=== PATIENT | male | born 1980 | race American Indian/Alaskan Native ===

== ENCOUNTER 2018-11-09 03:59 | Emergency (ER) | payer MEDICAID, OTHER ==
--- NOTE | 2018-11-09 04:23 | EDM.PDOC ---
ED HPI GENERAL MEDICAL PROBLEM - General Chief Complaint: Lower Extremity Injury/Pain Stated Complaint: LEFT BROKEN LEG Time Seen by Provider: 11/09/18 04:00 Source of Information: Reports: Patient History Limitations: Reports: No Limitations - History of Present Illness INITIAL COMMENTS - FREE TEXT/NARRATIVE: 38-year-old male was walking up stairs when he slipped and turned his left ankle. He is unable to bear weight, has significant swelling and pain. No other injury. Onset: Sudden Duration: Hour(s): (An hour ago) Location: Reports: Lower Extremity, Left Associated Symptoms: Reports: No Other Symptoms ankle Pain Score (Numeric/FACES): 10 - Related Data Allergies Allergy/AdvReac Type Severity Reaction Status Date / Time amoxicillin Allergy Rash Verified 11/09/18 04:05 Penicillins Allergy Rash Verified 11/09/18 04:05 Home Meds: Home Meds Gabapentin [Neurontin] 100 mg PO TID 11/09/18 [History] Venlafaxine HCl [Venlafaxine ER] 75 mg PO DAILY 11/09/18 [History] buPROPion [buPROPion XL] 150 mg PO DAILY 11/09/18 [History] Past Medical History Psychiatric History: Reports: ADHD, Anxiety, Depression, PTSD Social & Family History - Tobacco Use Smoking Status *Q: Current Every Day Smoker Years of Tobacco use: 12 Packs/Tins Daily: 0.5 - Recreational Drug Use Recreational Drug Use: No Review of Systems - Review of Systems Review Of Systems: See Below Constitutional: Denies: Fever Respiratory: Denies: Shortness of Breath Cardiovascular: Denies: Chest Pain GI/Abdominal: Denies: Abdominal Pain, Nausea, Vomiting Skin: Reports: Other (A small abrasion over the medial malleolus) ED EXAM, GENERAL - Physical Exam Exam: See Below Exam Limited By: No Limitations General Appearance: Alert, Mild Distress (Fairly uncomfortable) Head: Atraumatic Respiratory/Chest: No Respiratory Distress Cardiovascular: Regular Rate, Rhythm Extremities: Other (Remainder of exam is limited to the lower extremities. He has marked tenderness and swelling around the left ankle, and a small abrasion over the medial malleolus.) Course - Vital Signs Last Recorded V/S: Last Vital Signs Temp 98.7 F 11/09/18 04:01 Pulse 77 11/09/18 04:01 Resp 16 11/09/18 04:01 BP 171/87 H 11/09/18 04:01 Pulse Ox 99 11/09/18 04:01 - Orders/Labs/Meds Orders: Active Orders 24 hr Category Date Time Status DME for Discharge [COMM] Stat Oth 11/09/18 04:54 Ordered - Re-Assessments/Exams Free Text/Narrative Re-Assessment/Exam: 11/09/18 04:23 Left ankle x-ray was obtained. 11/09/18 04:55 X-ray confirms a comminuted spiral distal fibular fracture. Discussed this with orthopedics, the patient was put in a posterior splint, provided crutches, and will return tomorrow for surgical repair. He was given 12 hydrocodone for extra pain control. He states elevate the foot as much as possible and he will be called with the surgical time later today. He should not eat or drink anything after 1 AM tonight. Departure - Departure Time of Disposition: 05:01 Disposition: Home, Self-Care 01 Condition: Fair Clinical Impression: Fracture of fibula - Discharge Information Instructions: Fibular Ankle Fracture Treated With or Without Immobilization, Adult Referrals: PCP,None [Primary Care Provider] - Forms: ED Department Discharge Care Plan Goals: Keep splint on, use crutches and elevate leg as much as possible. You will be contacted for surgical time tomorrow morning. Do not eat or drink anything after 1 AM tonight unless you're surgery is later in the day they will inform you when to stop eating or drinking. Ibuprofen or naproxen will help the pain, add stronger pain medication if needed. - My Orders Last 24 Hours: My Active Orders 11/09/18 04:54 DME for Discharge [COMM] Stat - Assessment/Plan Last 24 Hours: My Active Orders 11/09/18 04:54 DME for Discharge [COMM] Stat
--- NOTE | 2018-11-09 04:45 | CRLCR ---
INDICATION: Ankle injury from fall TECHNIQUE: Ankle radiograph 3 views left COMPARISON: None FINDINGS: Bone: There is a comminuted segmental fracture of the distal fibula and lateral malleolus present. Cortical irregularity along the posterior distal tibia is present, suspicious for nondisplaced posterior tibial malleolar fracture. Joint: The ankle mortise joint and the visualized hindfoot joints are unremarkable in appearance. No significant ankle effusion is seen. Soft tissue: Mild lateral soft tissue swelling is noted. No radiopaque foreign bodies are seen. IMPRESSIONS: 1. There is a comminuted segmental fracture of the distal fibula and lateral malleolus present. 2. Cortical irregularity along the posterior distal tibia is present, suspicious for nondisplaced posterior tibial malleolar fracture. Dictated by Yariel Jerry MD @ 11/09/2018 4:42:59 AM Dictated by: Yariel Jerry MD @ 11/09/2018 04:43:04 (Electronically Signed)
== END 2018-11-09 05:14 | disposition home or self-care (01) ==
LOC: JP.ED 03:59
DX: S82.832A Other fracture of upper and lower end of left fibula, initial encounter for closed fracture (principal); F17.210 Nicotine dependence, cigarettes, uncomplicated; Z88.0 Allergy status to penicillin; Z88.8 Allergy status to other drugs, medicaments and biological substances; Z79.899 Other long term (current) drug therapy; W10.9XXA Fall (on) (from) unspecified stairs and steps, initial encounter
CPT/HCPCS: 29515; 73610-LT; 99284; 99284-25

== ENCOUNTER 2018-11-10 08:35 | Day surgery (SDC) | payer MEDICAID ==
[~2018-11-10 08:35] MED LIST: Bupivacaine 0.5% 30 ML SDV ONE
[2018-11-10] MEDS ORDERED: Rocuronium 50 MG/5 ML Vial ONE (09:20)
[2018-11-10] MEDS ORDERED: Ondansetron 4 MG/2 ML SDV ONE (09:20)
[2018-11-10] MEDS ORDERED: Dexamethasone 4 MG/ML SDV ONE (09:20)
[2018-11-10] MEDS ORDERED: Neostigmine Methylsulfate 1 MG/ML 5 ML Syringe ONE (09:20)
[2018-11-10] MEDS ORDERED: fentaNYL 250 MCG/5 ML SDV ONE (09:20)
[2018-11-10] MEDS ORDERED: Propofol 200 MG/20 ML SDV ONE (09:20)
[2018-11-10] MEDS ORDERED: Glycopyrrolate 0.2 MG/ML 5 ML MDV ONE (09:20)
[2018-11-10] MEDS ORDERED: Midazolam 1 MG/ML 2 ML SDV ONE (09:20)
[2018-11-10] MEDS ORDERED: Succinylcholine 200 MG/10 ML MDV ONE (09:20)
[2018-11-10] MEDS ORDERED: Sodium Chloride 0.9% 1,000 ML IV SCH (09:30)
[2018-11-10] MEDS ORDERED: Clindamycin Phosphate 900 MG in Sodium Chloride 0.9% 100 ML IV ONE (09:45)
[2018-11-10] MEDS ORDERED: Lactated Ringers 1,000 ML ONE (10:19)
[2018-11-10] MEDS ORDERED: Morphine 2 MG/ML Syringe IVPUSH ONE (11:20)
[2018-11-10] MEDS ORDERED: Acetaminophen/HYDROcodone 325-5 MG Tab PO PRN (11:56)
--- NOTE | 2018-11-10 17:03 | PCM.OPNOTE ---
- General Post-Op/Procedure Note Date of Surgery/Procedure: 11/10/18 Operative Procedure(s): Open Reduction and Internal Fixaton left ankle Findings: Comminuted left fibula fracture, moderately displaced Pre Op Diagnosis: Comminuted left fiblua fracture Post-Op Diagnosis: Same Anesthesia Technique: General ET Tube Secondary Surgeon: David WELCH in mLs: 25 Condition: Stable Free Text/Narrative:: Intake & Output 11/10/18 11/10/18 11/10/18 06:59 14:59 22:59 Intake Total 250 Balance 250 Indications: 38 year ol male fell and twisted his ankle resulting in a comminuted fracture of the left fibula that is moderately displaced. Presents for ORIF. Risks, benefits and potrential complications were discussed. Procedure: After adequate general anesthesia is obtained the patient was placed in a supine position with a bump under the left hip. A tourniquet was placed about the upper leg.The left leg is then prepped and draped in a sterile fash It is exsanguinated and the tourniquet is inflated to 300 mg of mercury pressure.A longitudinal incision is made over the distal fibula and carried down through the subcutaneous tissues.Dissection is carried down directly onto the lateral shaft of the fibula. A comminuted fracture is identified with a oblique fracture of the distal fibula at the malleolus and another oblique fracture several centimeters proximally in the distal one third of the shaft.Edges of the fracture were cleared of soft tisuue. Fracture edges are irrigated and bone-holding forceps were then used to reduce both fractures. A contoured fibular plate was selected long enough to span both fractures. This is placed over the lateral aspect of the fibula and secured with locking screws distally. Two 3.5 mm screws were then placed into the intercalary segment and 3 3.5 mm screws are placed into the proximal shaft. Excellent purchase was obtained with 3.5 mm screws. Final reduction and fixation was evaluated using fluoroscopy.Syndesmosis was also stressed under fluoroscopic imaging and no evidence of widening was noted. The wound was irrigated and closed in layers with 0 Vicryl in the fascial layer , 2-0 Vicryl and 3-0 Monocryl in a running subcuticular.Steri-Strips were applied. The incision was then infiltrated wit 0.5% Marcaine. A sterile dressing was then placed and wrapped with sterile soft roll. A well padded AO plaster splint was then applied with the foot in neutral position. Patient tolerated the procedure well and there were no complications and he was taken from the operating room is a stable condition.
== END 2018-11-10 13:15 | disposition home or self-care (01) ==
LOC: JP.SDS 08:35
PROVIDERS: ATTEND Specialist
DX: S82.452A Displaced comminuted fracture of shaft of left fibula, initial encounter for closed fracture (principal); F41.9 Anxiety disorder, unspecified; F32.9 Major depressive disorder, single episode, unspecified; F43.10 Post-traumatic stress disorder, unspecified; F90.9 Attention-deficit hyperactivity disorder, unspecified type; F17.200 Nicotine dependence, unspecified, uncomplicated; Z79.899 Other long term (current) drug therapy; Z88.1 Allergy status to other antibiotic agents; Z88.0 Allergy status to penicillin; W10.9XXA Fall (on) (from) unspecified stairs and steps, initial encounter; X50.1XXA Overexertion from prolonged static or awkward postures, initial encounter
CPT/HCPCS: 27784; A9270; C1713; J0330; J1100; J2250; J2270; J2405; J2704; J3010; J3490; J7030; J7120; J2710

== ENCOUNTER 2022-05-12 18:30 | Emergency (ER) | payer MEDICAID ==
[2022-05-12] MEDS ORDERED: Lactated Ringers 1,000 ML IV ONE (19:33)
[2022-05-12] MEDS ORDERED: Sodium Chloride 0.9% 10 ML Syringe FLUSH PRN (19:34)
[2022-05-12 20:02] LABS: ESTIMATED GFR 97 mL/min (>60)
== END 2022-05-12 22:08 | disposition home or self-care (01) ==
LOC: JP.ED 18:30
DX: R53.1 Weakness (principal); R53.83 Other fatigue; R11.2 Nausea with vomiting, unspecified; F17.210 Nicotine dependence, cigarettes, uncomplicated; Z88.0 Allergy status to penicillin; Z79.899 Other long term (current) drug therapy; Z20.822 Contact with and (suspected) exposure to COVID-19
CPT/HCPCS: 36415; 70450; 80053; 83690; 85025; 87635; 96360; 99285; J3490; J7120; U0002

== ENCOUNTER 2022-08-16 17:25 | Emergency (ER) | payer MEDICAID ==
[2022-08-17] MEDS ORDERED: Gabapentin 100 MG Cap PO SCH (06:00)
[2022-08-17] MEDS ORDERED: PROCHLORPERAZINE 5 MG PO SCH (06:00)
[2022-08-17] MEDS: Gabapentin 400 MG Cap PO SCH ×4 (07:23→21:37)
[2022-08-17] MEDS: Morphine 10 MG/0.5 ML Oral Syringe BUCCAL SCH ×5 (07:24→21:41)
[2022-08-17] MEDS: Prochlorperazine 10 MG Tab PO SCH ×3 (07:24→21:39)
[2022-08-17] MEDS ORDERED: Morphine 10 MG/0.5 ML Oral Syringe BUCCAL PRN (08:15)
[2022-08-17] MEDS ORDERED: Pantoprazole 40 MG Delayed-Release Granules 1 Packet PO SCH (09:00)
[2022-08-17] MEDS ORDERED: LEVETIRACETAM 750 MG PO SCH (09:00)
[2022-08-17] MEDS: Pantoprazole 40 MG Tab.CR PO SCH ×2 (09:04→15:52)
[2022-08-17] MEDS: Metoprolol Tartrate 25 MG Tab PO SCH ×2 (09:04→21:33)
[2022-08-17] MEDS: levETIRAcetam 250 MG Tab PO SCH ×2 (09:04→21:39)
[2022-08-17] MEDS: Dexamethasone 2 MG Tab PO SCH ×3 (09:05→21:32)
[2022-08-17] MEDS: Venlafaxine 75 MG Cap.ER PO SCH (09:05)
[2022-08-17] MEDS ORDERED: Gabapentin 400 MG Cap PO SCH ×2 (10:00)
[2022-08-17] MEDS: traZODone 50 MG Tab PO SCH (21:36)
[2022-08-17] MEDS: OLANZapine 5 MG Tab PO SCH (21:38)
[2022-08-18] MEDS: LORazepam 0.5 MG Tab PO PRN ×3 (05:11→23:34)
[2022-08-18] MEDS: Morphine 10 MG/0.5 ML Oral Syringe BUCCAL SCH ×4 (06:49→23:34)
[2022-08-18] MEDS: Gabapentin 400 MG Cap PO SCH ×4 (06:52→23:21)
[2022-08-18] MEDS: Prochlorperazine 10 MG Tab PO SCH ×3 (06:52→23:42)
[2022-08-18] MEDS: Pantoprazole 40 MG Tab.CR PO SCH ×2 (06:52→17:54)
[2022-08-18] MEDS: levETIRAcetam 250 MG Tab PO SCH ×3 (09:30→23:17)
[2022-08-18] MEDS: Dexamethasone 2 MG Tab PO SCH ×3 (11:41→23:20)
[2022-08-18] MEDS: Metoprolol Tartrate 25 MG Tab PO SCH ×2 (11:42→23:18)
[2022-08-18] MEDS: Venlafaxine 75 MG Cap.ER PO SCH (11:42)
[2022-08-18] MEDS: traZODone 50 MG Tab PO SCH (23:21)
[2022-08-18] MEDS: OLANZapine 5 MG Tab PO SCH (23:23)
[2022-08-19] MEDS: Morphine 10 MG/0.5 ML Oral Syringe BUCCAL SCH ×8 (03:15→22:11)
[2022-08-19] MEDS: Gabapentin 400 MG Cap PO SCH ×4 (06:24→22:12)
[2022-08-19] MEDS: Prochlorperazine 10 MG Tab PO SCH ×3 (06:31→22:08)
[2022-08-19] MEDS: levETIRAcetam 250 MG Tab PO SCH ×2 (09:10→22:10)
[2022-08-19] MEDS: Metoprolol Tartrate 25 MG Tab PO SCH ×2 (09:11→22:10)
[2022-08-19] MEDS: Dexamethasone 2 MG Tab PO SCH ×3 (09:11→22:10)
[2022-08-19] MEDS: Venlafaxine 75 MG Cap.ER PO SCH (09:11)
[2022-08-19] MEDS: Pantoprazole 40 MG Tab.CR PO SCH ×2 (13:34→16:18)
[2022-08-19] MEDS: OLANZapine 5 MG Tab PO SCH (22:13)
[2022-08-19] MEDS: traZODone 50 MG Tab PO SCH (22:14)
[2022-08-20] MEDS: Morphine 10 MG/0.5 ML Oral Syringe BUCCAL SCH ×6 (02:11→22:38)
[2022-08-20] MEDS: Prochlorperazine 10 MG Tab PO SCH ×3 (06:16→22:36)
[2022-08-20] MEDS: Gabapentin 400 MG Cap PO SCH ×4 (06:16→22:32)
[2022-08-20] MEDS: Pantoprazole 40 MG Tab.CR PO SCH ×2 (09:08→15:45)
[2022-08-20] MEDS: Dexamethasone 2 MG Tab PO SCH ×3 (09:22→22:37)
[2022-08-20] MEDS: Venlafaxine 75 MG Cap.ER PO SCH (09:23)
[2022-08-20] MEDS: levETIRAcetam 250 MG Tab PO SCH ×2 (09:23→22:33)
[2022-08-20] MEDS: Metoprolol Tartrate 25 MG Tab PO SCH ×2 (09:24→22:35)
[2022-08-20] MEDS: traZODone 50 MG Tab PO SCH (22:32)
[2022-08-20] MEDS: OLANZapine 5 MG Tab PO SCH (22:34)
[2022-08-21] MEDS: Morphine 10 MG/0.5 ML Oral Syringe BUCCAL SCH ×7 (03:44→22:42)
[2022-08-21] MEDS: Prochlorperazine 10 MG Tab PO SCH ×3 (07:02→22:33)
[2022-08-21] MEDS: Gabapentin 400 MG Cap PO SCH ×4 (07:02→22:36)
[2022-08-21] MEDS: Pantoprazole 40 MG Tab.CR PO SCH ×2 (07:03→16:47)
[2022-08-21] MEDS: Venlafaxine 75 MG Cap.ER PO SCH (08:06)
[2022-08-21] MEDS: levETIRAcetam 250 MG Tab PO SCH ×2 (08:06→22:38)
[2022-08-21] MEDS: Metoprolol Tartrate 25 MG Tab PO SCH ×2 (08:06→22:34)
[2022-08-21] MEDS: Dexamethasone 2 MG Tab PO SCH ×3 (08:06→22:37)
[2022-08-21] MEDS: traZODone 50 MG Tab PO SCH (22:37)
[2022-08-21] MEDS: OLANZapine 5 MG Tab PO SCH (22:40)
[2022-08-22] MEDS: Morphine 10 MG/0.5 ML Oral Syringe BUCCAL SCH ×6 (05:08→22:41)
[2022-08-22] MEDS: Prochlorperazine 10 MG Tab PO SCH ×3 (06:36→22:18)
[2022-08-22] MEDS: Gabapentin 400 MG Cap PO SCH ×4 (06:37→22:18)
[2022-08-22] MEDS: Pantoprazole 40 MG Tab.CR PO SCH ×2 (06:38→15:58)
[2022-08-22] MEDS: Dexamethasone 2 MG Tab PO SCH ×3 (07:55→22:13)
[2022-08-22] MEDS: Venlafaxine 75 MG Cap.ER PO SCH (07:56)
[2022-08-22] MEDS: Metoprolol Tartrate 25 MG Tab PO SCH ×2 (07:56→22:13)
[2022-08-22] MEDS: levETIRAcetam 250 MG Tab PO SCH ×2 (07:56→22:16)
[2022-08-22] MEDS: traZODone 50 MG Tab PO SCH (22:18)
[2022-08-22] MEDS: OLANZapine 5 MG Tab PO SCH (22:19)
[2022-08-22] MEDS ORDERED: Acetaminophen 500 MG Tab PO ONE (23:19)
[2022-08-23] MEDS: Morphine 10 MG/0.5 ML Oral Syringe BUCCAL SCH ×6 (02:26→21:58)
[2022-08-23] MEDS: Prochlorperazine 10 MG Tab PO SCH ×3 (07:30→22:01)
[2022-08-23] MEDS: Pantoprazole 40 MG Tab.CR PO SCH ×2 (07:30→16:05)
[2022-08-23] MEDS: Metoprolol Tartrate 25 MG Tab PO SCH ×2 (08:18→21:59)
[2022-08-23] MEDS: Venlafaxine 75 MG Cap.ER PO SCH (08:25)
[2022-08-23] MEDS: Dexamethasone 2 MG Tab PO SCH ×3 (08:25→22:00)
[2022-08-23] MEDS: levETIRAcetam 250 MG Tab PO SCH ×2 (08:25→22:00)
[2022-08-23] MEDS: Gabapentin 400 MG Cap PO SCH ×4 (08:26→22:01)
[2022-08-23] MEDS: OLANZapine 5 MG Tab PO SCH (22:00)
[2022-08-23] MEDS: traZODone 50 MG Tab PO SCH (22:01)
[2022-08-24] MEDS: Morphine 10 MG/0.5 ML Oral Syringe BUCCAL SCH ×6 (01:54→21:08)
[2022-08-24] MEDS: Prochlorperazine 10 MG Tab PO SCH ×3 (06:29→21:11)
[2022-08-24] MEDS: Gabapentin 400 MG Cap PO SCH ×4 (06:29→21:10)
[2022-08-24] MEDS: Pantoprazole 40 MG Tab.CR PO SCH ×2 (06:29→16:06)
[2022-08-24] MEDS: Dexamethasone 2 MG Tab PO SCH ×3 (09:27→21:11)
[2022-08-24] MEDS: Venlafaxine 75 MG Cap.ER PO SCH (09:28)
[2022-08-24] MEDS: levETIRAcetam 250 MG Tab PO SCH ×2 (09:28→21:09)
[2022-08-24] MEDS: Metoprolol Tartrate 25 MG Tab PO SCH ×2 (09:29→21:10)
[2022-08-24] MEDS: traZODone 50 MG Tab PO SCH (21:10)
[2022-08-24] MEDS: OLANZapine 5 MG Tab PO SCH (21:12)
[2022-08-25] MEDS: Morphine 10 MG/0.5 ML Oral Syringe BUCCAL SCH ×5 (03:19→23:04)
[2022-08-25] MEDS: Prochlorperazine 10 MG Tab PO SCH ×3 (05:12→23:00)
[2022-08-25] MEDS: Gabapentin 400 MG Cap PO SCH ×4 (05:13→22:59)
[2022-08-25] MEDS: Metoprolol Tartrate 25 MG Tab PO SCH ×2 (08:23→23:01)
[2022-08-25] MEDS: Dexamethasone 2 MG Tab PO SCH ×2 (08:23→14:22)
[2022-08-25] MEDS: levETIRAcetam 250 MG Tab PO SCH ×2 (08:23→23:04)
[2022-08-25] MEDS: Venlafaxine 75 MG Cap.ER PO SCH (08:23)
[2022-08-25] MEDS: Pantoprazole 40 MG Tab.CR PO SCH ×2 (08:24→17:10)
[2022-08-25] MEDS: traZODone 50 MG Tab PO SCH (22:59)
[2022-08-25] MEDS: OLANZapine 5 MG Tab PO SCH (23:04)
[2022-08-26] MEDS: Pantoprazole 40 MG Tab.CR PO SCH ×2 (07:00→17:01)
[2022-08-26] MEDS: Gabapentin 400 MG Cap PO SCH ×4 (07:01→21:57)
[2022-08-26] MEDS: Prochlorperazine 10 MG Tab PO SCH ×3 (07:02→21:51)
[2022-08-26] MEDS: Morphine 10 MG/0.5 ML Oral Syringe BUCCAL SCH ×6 (07:04→21:53)
[2022-08-26] MEDS: Metoprolol Tartrate 25 MG Tab PO SCH ×2 (09:48→21:52)
[2022-08-26] MEDS: Dexamethasone 2 MG Tab PO SCH ×4 (09:48→21:54)
[2022-08-26] MEDS: levETIRAcetam 250 MG Tab PO SCH ×2 (09:48→21:52)
[2022-08-26] MEDS: Venlafaxine 75 MG Cap.ER PO SCH (09:49)
[2022-08-26] MEDS: traZODone 50 MG Tab PO SCH (21:54)
[2022-08-26] MEDS: OLANZapine 5 MG Tab PO SCH (21:54)
[2022-08-27] MEDS: Morphine 10 MG/0.5 ML Oral Syringe BUCCAL SCH ×7 (02:41→18:04)
[2022-08-27] MEDS: Gabapentin 400 MG Cap PO SCH ×4 (06:33→22:21)
[2022-08-27] MEDS: Pantoprazole 40 MG Tab.CR PO SCH ×2 (06:34→16:47)
[2022-08-27] MEDS: Prochlorperazine 10 MG Tab PO SCH ×3 (06:34→21:00)
[2022-08-27] MEDS: Dexamethasone 2 MG Tab PO SCH ×3 (08:08→22:16)
[2022-08-27] MEDS: levETIRAcetam 250 MG Tab PO SCH ×2 (08:09→22:18)
[2022-08-27] MEDS: Venlafaxine 75 MG Cap.ER PO SCH (08:09)
[2022-08-27] MEDS: Metoprolol Tartrate 25 MG Tab PO SCH ×2 (08:16→22:19)
[2022-08-27] MEDS: OLANZapine 5 MG Tab PO SCH (22:20)
[2022-08-27] MEDS: traZODone 50 MG Tab PO SCH (22:21)
[2022-08-28] MEDS: Morphine 10 MG/0.5 ML Oral Syringe BUCCAL SCH ×7 (01:50→20:29)
[2022-08-28] MEDS: Prochlorperazine 10 MG Tab PO SCH ×3 (06:31→20:28)
[2022-08-28] MEDS: Gabapentin 400 MG Cap PO SCH ×4 (06:32→20:28)
[2022-08-28] MEDS: Pantoprazole 40 MG Tab.CR PO SCH ×2 (07:32→17:05)
[2022-08-28] MEDS: Metoprolol Tartrate 25 MG Tab PO SCH ×2 (09:01→20:27)
[2022-08-28] MEDS: Dexamethasone 2 MG Tab PO SCH ×3 (09:01→20:28)
[2022-08-28] MEDS: levETIRAcetam 250 MG Tab PO SCH ×2 (09:02→20:27)
[2022-08-28] MEDS: Venlafaxine 75 MG Cap.ER PO SCH (09:02)
[2022-08-28] MEDS: OLANZapine 5 MG Tab PO SCH (23:01)
[2022-08-28] MEDS: traZODone 50 MG Tab PO SCH (23:01)
[2022-08-29] MEDS: Morphine 10 MG/0.5 ML Oral Syringe BUCCAL SCH ×6 (02:52→22:12)
[2022-08-29] MEDS: Gabapentin 400 MG Cap PO SCH ×4 (06:36→22:09)
[2022-08-29] MEDS: Prochlorperazine 10 MG Tab PO SCH ×3 (06:36→22:10)
[2022-08-29] MEDS: Pantoprazole 40 MG Tab.CR PO SCH ×2 (07:37→16:04)
[2022-08-29] MEDS: Dexamethasone 2 MG Tab PO SCH ×3 (07:47→22:16)
[2022-08-29] MEDS: Venlafaxine 75 MG Cap.ER PO SCH (07:48)
[2022-08-29] MEDS: levETIRAcetam 250 MG Tab PO SCH ×2 (07:48→22:09)
[2022-08-29] MEDS: Metoprolol Tartrate 25 MG Tab PO SCH ×2 (07:50→22:11)
[2022-08-29] MEDS: traZODone 50 MG Tab PO SCH (22:09)
[2022-08-29] MEDS: OLANZapine 5 MG Tab PO SCH (22:10)
[2022-08-30] MEDS: Morphine 10 MG/0.5 ML Oral Syringe BUCCAL SCH ×6 (01:47→22:42)
[2022-08-30] MEDS: Gabapentin 400 MG Cap PO SCH ×4 (05:54→22:38)
[2022-08-30] MEDS: Prochlorperazine 10 MG Tab PO SCH ×3 (05:54→22:37)
[2022-08-30] MEDS: Dexamethasone 2 MG Tab PO SCH ×3 (07:37→22:39)
[2022-08-30] MEDS: Metoprolol Tartrate 25 MG Tab PO SCH ×2 (07:37→22:38)
[2022-08-30] MEDS: Venlafaxine 75 MG Cap.ER PO SCH (07:37)
[2022-08-30] MEDS: Pantoprazole 40 MG Tab.CR PO SCH ×2 (07:37→18:39)
[2022-08-30] MEDS: levETIRAcetam 250 MG Tab PO SCH ×2 (07:38→22:39)
[2022-08-30] MEDS ORDERED: Adenosine 6 MG/2 ML SDV IVPUSH ONE ×2 (08:29→08:34)
[2022-08-30] MEDS: OLANZapine 5 MG Tab PO SCH (22:37)
[2022-08-30] MEDS: traZODone 50 MG Tab PO SCH (22:40)
[2022-08-31] MEDS: Morphine 10 MG/0.5 ML Oral Syringe BUCCAL SCH ×3 (02:03→10:51)
[2022-08-31] MEDS: Gabapentin 400 MG Cap PO SCH (05:58)
[2022-08-31] MEDS: Prochlorperazine 10 MG Tab PO SCH (05:58)
[2022-08-31] MEDS: Pantoprazole 40 MG Tab.CR PO SCH (06:32)
[2022-08-31] MEDS: levETIRAcetam 250 MG Tab PO SCH (09:29)
[2022-08-31] MEDS: Dexamethasone 2 MG Tab PO SCH (09:29)
[2022-08-31] MEDS: Venlafaxine 75 MG Cap.ER PO SCH (09:29)
[2022-08-31] MEDS: Metoprolol Tartrate 25 MG Tab PO SCH (09:30)
== END 2022-08-31 14:15 | disposition hospice, inpatient (51) ==
LOC: JP.ED 17:25
DX: C71.9 Malignant neoplasm of brain, unspecified (principal); Z88.0 Allergy status to penicillin; Z20.822 Contact with and (suspected) exposure to COVID-19
CPT/HCPCS: 87635; 99285; A9270; J8540; Q0164; U0002